=== PATIENT | female | born 1980 | race Caucasian/White ===

== ENCOUNTER 2018-04-15 16:22 | Emergency (ER) | payer SELFPAY, OTHER ==
[2018-04-15] MEDS: SOD CHLORIDE 0.9% 500 ML IV (16:57)
[2018-04-15] MEDS: ACETAMINOPHEN 325 MG TAB PO (16:58)
[2018-04-15 17:04] LABS: ADD MAN DIFF? NO
[2018-04-15 17:05] LABS: WHITE BLOOD COUNT 10.3 10^3/ul (4.8-10.8)
[2018-04-15 17:05] LABS: BASOPHILS % 0.2 % (0.0-2.0); EOSINOPHILS # 0.2 10^3/ul (0.0-0.5); EOSINOPHILS % 1.6 % (0.0-7.0); HEMATOCRIT 34.4 % (37.0-47.0); HEMOGLOBIN 11.7 g/dl (12.0-16.0); LYMPHOCYTES # 2.2 10^3/ul (0.8-2.9); LYMPHOCYTES % 20.9 % (15.0-51.0); MEAN CORPUSCULAR HEMOGLOBIN 30.2 pg (29.0-33.0); MEAN CORPUSCULAR VOLUME 88.7 fl (82.0-101.0); MEAN PLATELET VOLUME 9.9 fl (7.4-10.4); MONOCYTE # 0.8 10^3/ul (0.3-0.9); MONOCYTES % 7.5 % (0.0-11.0); NEUTROPHIL # 7.2 10^3/ul (1.6-7.5); NEUTROPHILS % 69.2 % (39.0-77.0); PLATELET COUNT 254 10^3/UL (140-415); RED BLOOD COUNT 3.88 10^6/ul (4.20-5.40)
[2018-04-15 17:09] LABS: ADD UMIC YES; UR ASCORBIC ACID NEGATIVE (NEGATIVE); UR BACTERIA FEW /HPF (NONE SEEN); UR BILIRUBIN (Dip) NEGATIVE (NEGATIVE); UR BLOOD (Dip) NEGATIVE (NEGATIVE); UR CLARITY SLIGHTLY CLOUDY (CLEAR); UR COLOR YELLOW (YELLOW); UR GLUCOSE (Dip) NEGATIVE (NEGATIVE); UR KETONES (Dip) NEGATIVE (NEGATIVE); UR LEUKOCYTE ESTERASE (Dip) 3+ Leu/ul (NEGATIVE); UR NITRITE (Dip) NEGATIVE (NEGATIVE); UR RBC 4 /HPF (0-5); UR SPECIFIC GRAVITY (Dip) 1.016 (1.003-1.030); UR SQUAMOUS EPITHELIAL CELL MODERATE /HPF (FEW); UR TOTAL PROTEIN (Dip) NEGATIVE (NEGATIVE); UR UROBILINOGEN (Dip) NEGATIVE (NEGATIVE); UR WBC 4 /HPF (0-5)
[2018-04-15 17:24] LABS: ALBUMIN/GLOBULIN RATIO 1.25; ANION GAP 10 (5-13); CARBON DIOXIDE 23 mmol/L (21-31); CHLORIDE 105 mmol/L (97-110); Estimated GFR > 60 mL/min (>60); POTASSIUM 3.7 mmol/L (3.5-5.1); SODIUM 138 mmol/L (135-144)
[2018-04-15 17:31] LABS: ALANINE AMINOTRANSFERASE 13 IU/L (13-69); ALKALINE PHOSPHATASE 66 IU/L (42-121); ASPARTATE AMINO TRANSFERASE 20 IU/L (15-46); BILIRUBIN,INDIRECT 0.1 mg/dl (0-1.1); BILIRUBIN,TOTAL 0.1 mg/dl (0.2-1.3); BLOOD UREA NITROGEN 9 mg/dl (7-20); CALCIUM 8.9 mg/dl (8.4-10.2); CREATININE 0.43 mg/dl (0.44-1.00); GLUCOSE 86 mg/dl (70-220); TOTAL PROTEIN 7.2 g/dl (6.1-8.1)
[2018-04-15] MEDS: CEFTRIAXONE 1 GM/50 ML (PMX) 50 ML IVPB (17:48)
== END 2018-04-15 18:38 | disposition home or self-care (01) ==
LOC: FTE 16:22
DX: O23.42 Unspecified infection of urinary tract in pregnancy, second trimester (principal); R10.2 Pelvic and perineal pain; Z3A.18 18 weeks gestation of pregnancy
CPT/HCPCS: 36415; 76805; 80053; 81001; 84702; 85025; 87086; 96361; 96365; 99285-25